=== PATIENT | female | born 1945 | race Caucasian/White ===

== ENCOUNTER 2019-10-22 11:15 | Observation (INO) | payer MEDICARE ==
[~2019-10-22] VITALS: Ht 154.9 cm; Wt 59.7 kg
[~2019-10-22 11:15] MED LIST: CHOL200016 PO; CYAN100099 PO; FOLI1TAB15 PO; HYDR25TA PO; MONT10TA26 PO; PRAV40TA3 PO
[2019-10-22 13:37] LABS: BASOPHILS % (AUTO) 0.5 % (0.0-5.0); EOSINOPHILS % (AUTO) 0.9 % (0.0-8.0); LYMPHOCYTES % (AUTO) 58.6 % (21.0-51.0); MEAN CORPUSCULAR HEMOGLOBIN 29.6 pg (27.0-33.0); MEAN CORPUSCULAR HGB CONC 32.8 g/dL (32.0-36.0); MEAN CORPUSCULAR VOLUME 90.2 fL (79-99); MONOCYTES % (AUTO) 4.3 % (3.0-13.0); NEUTROPHILS % (AUTO) 35.4 % (40.0-77.0); PLATELET COUNT (AUTO) 143 K/uL (130-400); RED BLOOD CELL COUNT(AUTO) 3.99 MIL/uL (4.00-5.50); RED CELL DISTRIBUTION WIDTH 12.3 % (11.0-15.5); WHITE BLOOD COUNT (AUTO) 13.8 K/uL (4.8-10.8)
[2019-10-22 13:45] LABS: POTASSIUM 3.6 mmol/L (3.5-5.1)
[2019-10-27 14:11] VITALS: BP 140/56
[2019-10-27] MEDS ORDERED: ALBUHFA IH (14:18)
[2019-10-27] MEDS ORDERED: ASPI-1443 PO (14:18)
[2019-10-27] MEDS ORDERED: LEVE250T2 PO (14:18)
[2019-10-27] MEDS ORDERED: LOSA100T58 PO (14:18)
[2019-10-28] VITALS (24 sets, daily range): BP systolic 103–153; BP diastolic 40–71
[2019-10-28] MEDS ORDERED: CLINDAMYCIN 900 MG/D5% WATER 50 ML IV SCH (06:00)
[2019-10-28] MEDS ORDERED: LACTATED RINGERS 1000ML 1,000 ML IV ONE (06:33)
[2019-10-28] MEDS ORDERED: BUPIVACAINE/EPI/PF 0.25% 30ML VIAL IJ ONE (06:59)
[2019-10-28] MEDS ORDERED: DURAMORPH PF1 MG/ML 10ML AMP IV ONE (07:00)
[2019-10-28] MEDS ORDERED: THROMBIN-JMI 20000 UNIT KIT TP ONE (07:00)
[2019-10-28] MEDS ORDERED: CLINDAMYCIN PHOSPHATE 150 MG/ML 6ML VIAL ONE (07:00)
[2019-10-28 07:03] LABS: BASOPHILS % (AUTO) 0.5 % (0.0-5.0); EOSINOPHILS % (AUTO) 2.7 % (0.0-8.0); HEMATOCRIT 32.9 % (36-48); LYMPHOCYTES % (AUTO) 70.5 % (21.0-51.0); MEAN CORPUSCULAR HEMOGLOBIN 29.7 pg (27.0-33.0); MEAN CORPUSCULAR HGB CONC 33.1 g/dL (32.0-36.0); MEAN CORPUSCULAR VOLUME 89.6 fL (79-99); MONOCYTES % (AUTO) 4.2 % (3.0-13.0); PLATELET COUNT (AUTO) 149 K/uL (130-400); RED BLOOD CELL COUNT(AUTO) 3.67 MIL/uL (4.00-5.50); RED CELL DISTRIBUTION WIDTH 12.1 % (11.0-15.5); WHITE BLOOD COUNT (AUTO) 15.2 K/uL (4.8-10.8)
[2019-10-28] MEDS ORDERED: GENTAMICIN 80 MG/NS 100 ML PB 100 ML IV ONE (07:19)
[2019-10-28] MEDS ORDERED: SUCCINYLCHOLINE CHLORIDE 20 MG/ML 10 ML VIAL ONE (07:28)
[2019-10-28] MEDS ORDERED: LIDOCAINE PF 2% 5ML ABBOJECT ONE (07:28)
[2019-10-28] MEDS ORDERED: DEXAMETHASONE SOD PHOSPHATE 10MG/ML 1ML VIAL ONE ×2 (07:29→07:38)
[2019-10-28] MEDS ORDERED: GLYCOPYRROLATE 1 MG/5 ML SYRINGE ONE (07:29)
[2019-10-28] MEDS ORDERED: PROPOFOL 10 MG/ML 20ML VIAL IV ONE (07:29)
[2019-10-28] MEDS ORDERED: MIDAZOLAM HCL 1 MG/ML 2ML VIAL ONE (07:29)
[2019-10-28] MEDS ORDERED: ONDANSETRON HCL 4 MG/2 ML VIAL ONE (07:30)
[2019-10-28] MEDS ORDERED: NEOSTIGMINE 5MG/5ML SYR IV ONE (07:30)
[2019-10-28] MEDS ORDERED: FENTANYL CITRATE PF 50 MCG/1 ML 2ML VIAL ONE ×2 (07:30→08:12)
[2019-10-28] MEDS ORDERED: ROCURONIUM 10MG/1ML SYR 10 MG/ML ML ONE (07:30)
[2019-10-28] MEDS ORDERED: EPHEDRINE SULFATE 50 MG/ML AMPULE ONE (07:41)
[2019-10-28] MEDS ORDERED: ESMOLOL HCL 10 MG/ML 10 ML VIAL ONE (08:26)
[2019-10-28] MEDS: CLINDAMYCIN 900 MG/D5% WATER 50 ML IV SCH ×3 (09:45→21:46)
[2019-10-28] MEDS: DEXAMETHASONE SOD PHOSPHATE 4 MG/ML 1ML VIAL IVP SCH ×3 (09:45→21:41)
[2019-10-28] MEDS ORDERED: HYDROCODONE/ACETAMINOPHEN 5/325 MG TAB PO PRN (09:45)
[2019-10-28] MEDS ORDERED: PROMETHAZINE HCL 25 MG/ML 1ML AMPULE IM PRN (09:45)
[2019-10-28] MEDS ORDERED: MORPHINE SULFATE 2 MG/ML 1ML SYG IVP PRN (09:45)
[2019-10-28] MEDS ORDERED: SODIUM CHLORIDE 0.9% 10 ML VIAL IVP PRN (09:45)
[2019-10-28] MEDS: LACTATED RINGERS 1000ML 1,000 ML IV SCH ×2 (11:48→23:00)
[2019-10-28] MEDS: ALBUTEROL INHALER 90MCG/INH IH SCH (21:00)
[2019-10-28] MEDS: ASPIRIN 81 MG EC TAB PO SCH (21:40)
[2019-10-28] MEDS: LEVETIRACETAM 250 MG TABLET PO SCH (21:40)
[2019-10-28] MEDS: ATORVASTATIN CALCIUM 10 MG TABLET PO SCH (21:40)
--- NOTE | 2019-10-28 22:20 | NUR ---
ACTIVITY PATIENT IS NOW MORE AWAKE AND ALERT. SAYS SHE IS READY TO TRY TO WALK. TYPESETTER APPRENTICE HELPED HER TO GET UP AND WALKED IN HALLWAY ABOUT 30 FEET AND RETURNED TO ROOM. TOLERATED WELL WITHOUT VOICING DISCOMFORTS.
[2019-10-29 00:13] VITALS: BP 97/53
[2019-10-29] MEDS: DEXAMETHASONE SOD PHOSPHATE 4 MG/ML 1ML VIAL IVP SCH ×5 (04:31→22:24)
[2019-10-29] MEDS: CLINDAMYCIN 900 MG/D5% WATER 50 ML IV SCH ×2 (04:31→09:44)
[2019-10-29 05:23] VITALS: BP 99/56
[2019-10-29 08:00] VITALS: BP 91/48
[2019-10-29] MEDS ORDERED: LOSARTAN 100 MG TABLET PO SCH (09:00)
[2019-10-29] MEDS ORDERED: MONTELUKAST SODIUM 10 MG TAB PO SCH (09:00)
[2019-10-29] MEDS ORDERED: FOLIC ACID 1 MG TABLET PO SCH (09:00)
[2019-10-29] MEDS ORDERED: HYDROCHLOROTHIAZIDE 25 MG TABLET PO SCH (09:00)
[2019-10-29] MEDS ORDERED: CYANOCOBALAMIN (VITAMIN B-12) 1,000 MCG TABLET PO SCH (09:00)
[2019-10-29] MEDS ORDERED: **HM** VIT D3 2000 UNITS PO SCH (09:00)
[2019-10-29] MEDS: ALBUTEROL INHALER 90MCG/INH IH SCH ×2 (09:00→21:00)
[2019-10-29] MEDS: LACTATED RINGERS 1000ML 1,000 ML IV SCH (09:44)
[2019-10-29] MEDS: LEVETIRACETAM 250 MG TABLET PO SCH ×2 (09:56→22:24)
[2019-10-29 11:44] VITALS: BP 94/48
[2019-10-29] MEDS ORDERED: LEVOFLOXACIN 500 MG TABLET PO SCH (15:45)
[2019-10-29 16:00] VITALS: BP 113/47
[2019-10-29] MEDS ORDERED: ONDANSETRON HCL 4 MG/2 ML VIAL IVP PRN (16:00)
[2019-10-29] MEDS ORDERED: MORPHINE SULFATE 2 MG/ML 1ML SYG IVP PRN (16:00)
[2019-10-29] MEDS ORDERED: TRAMADOL HCL 50 MG TABLET PO PRN (16:00)
[2019-10-29 16:27] LABS: ALBUMIN 3.4 g/dL (3.5-5.0); BILIRUBIN,TOTAL 0.4 mg/dL (0.2-1.0); CREATININE 1.4 mg/dL (0.5-1.5); POTASSIUM 3.8 mmol/L (3.5-5.1); TOTAL PROTEIN, SERUM 6.1 g/dL (6.0-8.3)
[2019-10-29 20:07] VITALS: BP 108/56
[2019-10-29 20:24] LABS: APPEARANCE,URINE Clear (CLEAR); BILIRUBIN,URINE Negative (NEGATIVE); COLOR,URINE Yellow (YELLOW); GLUCOSE, URINE (UA) Negative (NEGATIVE); KETONES,URINE Negative (NEGATIVE); LEUKOCYTE ESTERASE ,URINE Negative (NEGATIVE); NITRATE,URINE Negative (NEGATIVE); OCCULT BLOOD,URINE Negative (NEGATIVE); PH,URINE 6.5 (5.0-8.0); PROTEIN,URINE Negative (NEGATIVE); UROBILINOGEN,URINE 0.2 mg/dL (0.2-1.0)
[2019-10-29] MEDS: ATORVASTATIN CALCIUM 10 MG TABLET PO SCH (22:24)
[2019-10-29] MEDS: ASPIRIN 81 MG EC TAB PO SCH (22:24)
[2019-10-30 00:18] VITALS: BP 115/55
--- NOTE | 2019-10-30 03:36 | NUR ---
ACTIVITY PATIENT WALKING INDEPENDENTLY IN HALLWAY WITH BUSINESS SYSTEMS ADMINISTRATOR STAND BY ASSIST. WALKED HALF AROUND FLOOR ONCE. DENIES NUMBNESS ON LEGS RETURNING DURING NIGHT OR OTHER DISCOMFORTS. HAS BEEN URINATED WITHOUT PROBLEMS.
[2019-10-30 03:44] LABS: BASOPHILS % (AUTO) 0.1 % (0.0-5.0); HEMATOCRIT 30.2 % (36-48); LYMPHOCYTES % (AUTO) 31.8 % (21.0-51.0); MEAN CORPUSCULAR HEMOGLOBIN 29.5 pg (27.0-33.0); MEAN CORPUSCULAR HGB CONC 32.8 g/dL (32.0-36.0); MEAN CORPUSCULAR VOLUME 89.9 fL (79-99); MONOCYTES % (AUTO) 4.3 % (3.0-13.0); PLATELET COUNT (AUTO) 138 K/uL (130-400); RED BLOOD CELL COUNT(AUTO) 3.36 MIL/uL (4.00-5.50); RED CELL DISTRIBUTION WIDTH 12.5 % (11.0-15.5)
[2019-10-30 04:00] VITALS: BP 117/58
[2019-10-30 04:07] LABS: ALBUMIN 3.1 g/dL (3.5-5.0); BILIRUBIN,TOTAL 0.4 mg/dL (0.2-1.0); POTASSIUM 3.5 mmol/L (3.5-5.1); TOTAL PROTEIN, SERUM 5.9 g/dL (6.0-8.3)
[2019-10-30] MEDS: DEXAMETHASONE SOD PHOSPHATE 4 MG/ML 1ML VIAL IVP SCH (04:58)
--- NOTE | 2019-10-30 05:37 | NUR ---
ACTIVITY PATIENT WALKING INDEPENDENTLY IN HALLWAY WITH IP PARALEGAL STAND BY ASSIST. WALKED AROUND ENTIRE FLOOR ONCE.
[2019-10-30 08:26] VITALS: BP 122/54
[2019-10-30] MEDS ORDERED: LEVOFLOXACIN 500 MG TABLET PO SCH (09:00)
--- NOTE | 2019-10-30 10:24 | NUR ---
08:35 patient is pending to be DC by FLOR Hunter Addendum: 10/30/19 at 1024 by CASSIE COX PT PT Amended: Links added.
== END 2019-10-30 10:00 | disposition home or self-care (01) ==
LOC: EDSTATUS 11:15 → DAHIP 10-28 05:50 → 3AH 10-28 10:32
PROVIDERS: ADMIT Neurological Surgery; ATTEND Neurological Surgery
DX: M51.27 Other intervertebral disc displacement, lumbosacral region (principal); Z20.828 Contact with and (suspected) exposure to other viral communicable diseases; M51.26 Other intervertebral disc displacement, lumbar region; J44.9 Chronic obstructive pulmonary disease, unspecified; I10 Essential (primary) hypertension; E78.5 Hyperlipidemia, unspecified; D72.829 Elevated white blood cell count, unspecified; Z88.0 Allergy status to penicillin
CPT/HCPCS: 36415 ×4; 63047; 71045; 72020; 76770; 80051; 80053 ×2; 81003; 85025 ×3; 87088; 96361; 96365; 96366 ×2; 96372; 96375; 96376 ×3; A4215; A4221; A4222; A4223; A4344; A4649 ×2; A4663; A6260; G0378 ×21; J0330; J1100 ×9; J1580; J2001; J2250; J2274; J2405; J2550; J2704; J2710; J3010 ×2; J3490 ×6; J7120 ×3; U0003

== ENCOUNTER → 2020-01-11 | Outpatient (CLI) | payer MEDICARE ==
[~2020-01-11] MED LIST changes: +ALBUHFA IH; +ASPI-1443 PO; +LEVE250T2 PO; +LOSA100T58 PO
== END | disposition home or self-care (01) ==
LOC: LAB 12:17
PROVIDERS: ATTEND Neurological Surgery
DX: M54.14 Radiculopathy, thoracic region (principal)
CPT/HCPCS: 36415; 82565; 84520

== ENCOUNTER → 2020-01-13 | Outpatient (CLI) | payer MEDICARE ==
[~2020-01-13] MED LIST changes: +GADODIAMIDE 10 MMOL/20 ML VIAL IV ONE; -MONT10TA26 PO; +MONT10TA96 PO
== END | disposition home or self-care (01) ==
LOC: RAH 09:33
PROVIDERS: ATTEND Neurological Surgery
DX: M51.17 Intervertebral disc disorders with radiculopathy, lumbosacral region (principal)
CPT/HCPCS: 72158; A9579

== ENCOUNTER 2020-01-20 09:00 | Observation (INO) | payer MEDICARE ==
[~2020-01-20] VITALS: Ht 154.9 cm; Wt 57.3 kg
[~2020-01-20 09:00] MED LIST changes: -ALBUHFA IH; -GADODIAMIDE 10 MMOL/20 ML VIAL IV ONE
[2020-01-20 10:14] LABS: BASOPHILS % (AUTO) 0.4 % (0.0-5.0); EOSINOPHILS % (AUTO) 1.5 % (0.0-8.0); LYMPHOCYTES % (AUTO) 75.5 % (21.0-51.0); MEAN CORPUSCULAR HEMOGLOBIN 29.7 pg (27.0-33.0); MONOCYTES % (AUTO) 3.6 % (3.0-13.0); NEUTROPHILS % (AUTO) 18.8 % (40.0-77.0); PLATELET COUNT (AUTO) 130 K/uL (130-400); RED BLOOD CELL COUNT(AUTO) 4.11 MIL/uL (4.00-5.50); RED CELL DISTRIBUTION WIDTH 12.3 % (11.0-15.5); WHITE BLOOD COUNT (AUTO) 26.4 K/uL (4.8-10.8)
[2020-01-20 10:21] LABS: CREATININE 0.9 mg/dL (0.5-1.5); POTASSIUM 3.6 mmol/L (3.5-5.1)
[2020-01-20 11:51] LABS: EOSINOPHILS % (MANUAL) 1 % (1-6); LYMPHOCYTES % (MANUAL) 45 % (22-44); MAN.DIFF COMMENT-IMPRESSION MANUAL DIFFERENTIAL; MONOCYTES % (MANUAL) 2 % (2-9); PLATELET MORPHOLOGY COMMENT ADEQUATE; REACTIVE LYMPHOCYTES 34 % (0-0); SEGMENTED NEUTROPHILS % 18 % (40-70)
[2020-01-25 09:41] VITALS: BP 156/72
[2020-01-25] MEDS ORDERED: BUDE10.2 IH (10:10)
[2020-01-26] VITALS (34 sets, daily range): BP systolic 97–161; BP diastolic 33–98
[2020-01-26] MEDS: CLINDAMYCIN 900 MG/D5% WATER 50 ML IV SCH ×4 (05:00→19:20)
[2020-01-26] MEDS ORDERED: BUPIVACAINE/EPI/PF 0.25% 10ML VIAL IJ ONE (06:55)
[2020-01-26] MEDS ORDERED: CEFAZOLIN SODIUM 1 GM VIAL ONE (06:55)
[2020-01-26] MEDS ORDERED: DURAMORPH PF1 MG/ML 10ML AMP IV ONE (06:55)
[2020-01-26] MEDS ORDERED: THROMBIN-JMI 20000 UNIT KIT TP ONE (06:56)
[2020-01-26] MEDS ORDERED: LACTATED RINGERS 1000ML 1,000 ML IV ONE ×2 (07:27→08:38)
[2020-01-26 07:46] LABS: HEMATOCRIT 37.1 % (36-48); MEAN CORPUSCULAR HEMOGLOBIN 29.1 pg (27.0-33.0); MEAN CORPUSCULAR HGB CONC 32.3 g/dL (32.0-36.0); MEAN CORPUSCULAR VOLUME 89.8 fL (79-99); PLATELET COUNT (AUTO) 120 K/uL (130-400); RED BLOOD CELL COUNT(AUTO) 4.13 MIL/uL (4.00-5.50); RED CELL DISTRIBUTION WIDTH 12.4 % (11.0-15.5); WHITE BLOOD COUNT (AUTO) 24.9 K/uL (4.8-10.8)
[2020-01-26] MEDS ORDERED: SUCCINYLCHOLINE CHLORIDE 20 MG/ML 10 ML VIAL ONE (07:56)
[2020-01-26] MEDS ORDERED: LIDOCAINE PF 2% 5ML ABBOJECT ONE (07:57)
[2020-01-26] MEDS ORDERED: DEXAMETHASONE SOD PHOSPHATE 10MG/ML 1ML VIAL ONE ×2 (07:58→08:25)
[2020-01-26] MEDS ORDERED: GLYCOPYRROLATE 1 MG/5 ML SYRINGE ONE (07:58)
[2020-01-26] MEDS ORDERED: PROPOFOL 10 MG/ML 20ML VIAL IV ONE (07:58)
[2020-01-26] MEDS ORDERED: MIDAZOLAM HCL 1 MG/ML 2ML VIAL ONE (07:58)
[2020-01-26] MEDS ORDERED: ONDANSETRON HCL 4 MG/2 ML VIAL ONE (07:59)
[2020-01-26] MEDS ORDERED: NEOSTIGMINE 5MG/5ML SYR IV ONE (07:59)
[2020-01-26] MEDS ORDERED: FENTANYL CITRATE PF 50 MCG/1 ML 2ML VIAL ONE ×2 (08:00→10:11)
[2020-01-26] MEDS ORDERED: ROCURONIUM 10MG/1ML SYR 10 MG/ML ML ONE (08:19)
[2020-01-26 08:51] LABS: BASOPHILS % (MANUAL) 1 % (0-2); EOSINOPHILS % (MANUAL) 1 % (1-6); LYMPHOCYTES % (MANUAL) 90 % (22-44); MAN.DIFF COMMENT-IMPRESSION MANUAL DIFFERENTIAL; MONOCYTES % (MANUAL) 4 % (2-9); PLATELET MORPHOLOGY COMMENT SLIGHTLY DECREASED; SEGMENTED NEUTROPHILS % 4 % (40-70)
[2020-01-26] MEDS ORDERED: NALOXONE HCL 0.4 MG/1 ML ML ONE (12:08)
[2020-01-26] MEDS ORDERED: PROMETHAZINE HCL 25 MG/ML 1ML AMPULE IM PRN (12:15)
[2020-01-26] MEDS: LACTATED RINGERS 1000ML 1,000 ML IV SCH (12:15)
[2020-01-26] MEDS ORDERED: SODIUM CHLORIDE 0.9% 10 ML VIAL IVP PRN (12:15)
[2020-01-26] MEDS: DEXAMETHASONE SOD PHOSPHATE 4 MG/ML 1ML VIAL IVP SCH ×3 (12:15→22:57)
[2020-01-26] MEDS ORDERED: HYDROCODONE/ACETAMINOPHEN 5/325 MG TAB PO PRN (12:15)
[2020-01-26] MEDS ORDERED: MORPHINE SULFATE 2 MG/ML 1ML SYG IVP PRN (12:15)
[2020-01-26] MEDS: ALBUTEROL SULFATE 0.083% 2.5 MG/3 ML INH IH SCH (18:49)
[2020-01-26] MEDS: BUDESONIDE 0.5 MG/2 ML INH IH SCH (18:57)
[2020-01-26] MEDS ORDERED: LEVETIRACETAM 250 MG TABLET PO ONE (19:24)
[2020-01-26] MEDS ORDERED: ATORVASTATIN CALCIUM 10 MG TABLET ONE (19:24)
[2020-01-26] MEDS: ASPIRIN 81MG TAB.CHEW ONE ×2 (20:03→20:04)
[2020-01-26] MEDS: LEVETIRACETAM 250 MG TABLET PO SCH (20:03)
[2020-01-26] MEDS ORDERED: ATORVASTATIN CALCIUM 10 MG TABLET PO SCH (21:00)
[2020-01-26] MEDS ORDERED: ASPIRIN 81 MG EC TAB PO SCH (21:00)
[2020-01-27] MEDS: ALBUTEROL SULFATE 0.083% 2.5 MG/3 ML INH IH SCH ×3 (00:31→11:01)
[2020-01-27 04:12] VITALS: BP 124/58
[2020-01-27] MEDS: DEXAMETHASONE SOD PHOSPHATE 4 MG/ML 1ML VIAL IVP SCH (04:37)
[2020-01-27] MEDS: LACTATED RINGERS 1000ML 1,000 ML IV SCH (04:44)
[2020-01-27] MEDS: BUDESONIDE 0.5 MG/2 ML INH IH SCH (06:26)
[2020-01-27 07:49] VITALS: BP 111/42
[2020-01-27] MEDS ORDERED: CYANOCOBALAMIN (VITAMIN B-12) 1,000 MCG TABLET PO SCH (09:00)
[2020-01-27] MEDS ORDERED: CHOLECALCIFEROL 2000 UNIT PO SCH (09:00)
[2020-01-27] MEDS ORDERED: HYDROCHLOROTHIAZIDE 25 MG TABLET PO SCH (09:00)
[2020-01-27] MEDS ORDERED: LOSARTAN 100 MG TABLET PO SCH (09:00)
[2020-01-27] MEDS ORDERED: FOLIC ACID 1 MG TABLET PO SCH (09:00)
[2020-01-27] MEDS ORDERED: MONTELUKAST SODIUM 10 MG TAB PO SCH (09:00)
[2020-01-27] MEDS: LEVETIRACETAM 250 MG TABLET PO SCH (09:39)
[2020-01-27 11:00] VITALS: BP 98/43
== END 2020-01-27 14:00 | disposition home or self-care (01) ==
LOC: EDSTATUS 09:00 → DAHIP 01-26 05:45 → 3BH 01-26 13:54
PROVIDERS: ADMIT Neurological Surgery; ATTEND Neurological Surgery
DX: M51.17 Intervertebral disc disorders with radiculopathy, lumbosacral region (principal); Z20.828 Contact with and (suspected) exposure to other viral communicable diseases; Z79.82 Long term (current) use of aspirin; Z79.899 Other long term (current) drug therapy; Z88.0 Allergy status to penicillin
CPT/HCPCS: 36415 ×2; 63047; 72020; 80048; 85025 ×2; 94640 ×6; 94664; 96361 ×2; 96365; 96375; 96376 ×2; A4215; A4221; A4222; A4223; A4344; A4649 ×4; A4663; A6260; G0378 ×25; J0330; J0690; J1100 ×5; J2001; J2250; J2274; J2310; J2405; J2704; J2710; J3010 ×2; J3490 ×5; J7030; J7120 ×4; U0003